=== PATIENT | male | born 1985 | race Caucasian/White ===

== ENCOUNTER 2017-04-23 14:28 | Emergency (ER) | payer OTHER ==
[~2017-04-23] VITALS: Ht 167.6 cm; Wt 81.6 kg
[2017-04-23 14:30] VITALS: BP 152/82
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
--- NOTE | 2017-04-23 15:10 | NUR ---
SHORT LEG SPLINT BEING PLACED
[2017-04-23] MEDS ORDERED: HYDROcodone/APAP 10/325 MG 1 TAB TAB PO ONE (15:20)
--- NOTE | 2017-04-23 16:13 | NUR ---
PT TOSSED URINE FROM HIS URINAL ONTO THE FLOOR--STATED HE IS TIRED AND WANTS TO GO TO [facility] ALREADY
[2017-04-23 16:14] VITALS: BP 152/82
--- NOTE | 2017-04-23 16:14 | NUR ---
PATIENT BIB [facility] [facility]PT. PATIENT EXAMINED BY . PATIENT MEDICALLY CLEARED AND RELEASED IN CUSTODY IN STABLE CONDITION. ORIGINAL PRE-BOOK FORM GIVEN TO OFFICER .
== END 2017-04-23 16:14 ==
LOC: MED 14:33
DX: Z02.89 Encounter for other administrative examinations (principal); S82.61XA Displaced fracture of lateral malleolus of right fibula, initial encounter for closed fracture; S00.83XA Contusion of other part of head, initial encounter; S20.419A Abrasion of unspecified back wall of thorax, initial encounter; I10 Essential (primary) hypertension; Z71.6 Tobacco abuse counseling; W22.8XXA Striking against or struck by other objects, initial encounter; Y93.89 Activity, other specified; Y92.89 Other specified places as the place of occurrence of the external cause; Y99.8 Other external cause status
CPT/HCPCS: 29515; 70150; 73610; 93005; 99284

== ENCOUNTER 2018-05-30 18:01 | Emergency (ER) | payer MEDICAID, OTHER ==
[~2018-05-30] VITALS: Ht 167.6 cm; Wt 82.6 kg
[2018-05-30 18:05] VITALS: BP 132/82
--- NOTE | 2018-05-30 18:11 | NUR ---
PT AMBULATED TO BED 01.
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
[2018-05-30] MEDS ORDERED: KETOROLAC 60 MG/2 ML VIAL IM ONE (18:35)
--- NOTE | 2018-05-30 18:55 | NUR ---
MOTHER REPORTED . PT HAS HX : SCHIZOPHRENIA, SEIZURE. MED: HYDROXAPINE, FLUPHENAZINE & LAMOTRIGINE
--- NOTE | 2018-05-30 19:05 | NUR ---
Pt report given to ROBYN FREEMAN. Transfer of care at this time.
[2018-05-30] MEDS ORDERED: GABAPENTIN 300 MG CAP PO ONE (19:40)
[2018-05-30] MEDS ORDERED: GABAPENTIN 300 MG CAP ONE (20:12)
--- NOTE | 2018-05-30 20:12 | NUR ---
ADMINISTERED NEURONTIN 300MG CAP PER DR PERALTA ORDERS. EXPLAINED COMMON SIDE EFFECTS.
[2018-05-30 20:15] VITALS: BP 122/63
--- NOTE | 2018-05-30 20:15 | NUR ---
Patient discharged with v/s stable. Written and verbal after care instructions given and explained. Patient alert, oriented and verbalized understanding of instructions. Ambulatory with steady gait. All questions addressed prior to discharge. ID band removed. Patient advised to follow up with PMD. Rx of Neurontin given. Patient educated on indication of medication including possible reaction and side effects. Opportunity to ask questions provided and answered.
== END 2018-05-30 20:15 | disposition home or self-care (01) ==
LOC: MED 18:01
DX: M79.601 Pain in right arm (principal); F20.9 Schizophrenia, unspecified
CPT/HCPCS: 96372; 99283; J1885

== ENCOUNTER 2018-06-24 20:56 | Emergency (ER) | payer MEDICAID ==
[~2018-06-24] VITALS: Ht 152.4 cm; Wt 81.6 kg
[2018-06-24 21:01] VITALS: BP 150/80
--- NOTE | 2018-06-24 21:06 | NUR ---
AAOX4 WITH EVEN AND STEADY GAIT; PATIENT STATES PAIN OF 8/10; VSS; PATIENT POSITIONED FOR COMFORT; HOB ELEVATED; BEDRAILS UP X2; BED DOWN. ER MD MADE AWARE OF PT STATUS. WILL CONTINUE TO MONITOR.
[2018-06-24 21:35] VITALS: BP 150/80
--- NOTE | 2018-06-24 21:35 | NUR ---
PATIENT BIB [place] [employer]. PATIENT EXAMINED BY DR. PERALTA. PATIENT MEDICALLY CLEARED AND RELEASED IN CUSTODY IN STABLE CONDITION. ORIGINAL PRE-BOOK FORM GIVEN TO OFFICER .
== END 2018-06-24 21:35 ==
LOC: MED 20:56
DX: M79.602 Pain in left arm (principal); Z02.89 Encounter for other administrative examinations
CPT/HCPCS: 90471; 90715; 99283

== ENCOUNTER 2019-09-27 15:36 | Emergency (ER) | payer OTHER ==
[~2019-09-27] VITALS: Ht 167.6 cm; Wt 113.4 kg
--- NOTE | 2019-09-27 15:39 | NUR ---
PT KRISTA BLS TO ER BED 07
[2019-09-27 15:49] VITALS: BP 143/104
--- NOTE | 2019-09-27 15:52 | NUR ---
PT MOTHER/CONSERVITOR/POWER OF DETECTIVE AND INTELLIGENCE ANALYST #[phone]
--- NOTE | 2019-09-27 15:58 | NUR ---
pt pulled out his IV sts " It hurt, i didn't like it." TIARA Arevalo notifted
--- NOTE | 2019-09-27 16:00 | NUR ---
BIB [facility] S/P PT MOTHER CALLED EMS ON PT BECAUSE SHE BELIEVED HE WAS HAVING A SEIZURE. PT STATES HE WAS NOT HAVING A SEIZURE, HE WAS CONSCIOUS AND IN "SHOCK", LIKELY HAVING A SCHIZOPHRENIC OUTBURST. PT DENIES SI/HI. RESP EVEN AND UNLABORED. AAOX4. ABLE TO AMBULATE TO RESTROOM. DENIES CP/SOB. PMH: SCHIZOPHRENIA, BIPOLAR
--- NOTE | 2019-09-27 16:21 | NUR ---
PATIENT ELOPED FROM FACILITY. DISCHARGE INSTRUCTIONS NOT GIVEN TO PATIENT. TIARA WOODARD NOTIFIED.
== END 2019-09-27 16:21 | disposition left against medical advice (07) ==
LOC: MED 15:36
DX: F20.0 Paranoid schizophrenia (principal); F17.210 Nicotine dependence, cigarettes, uncomplicated; F41.9 Anxiety disorder, unspecified; F32.9 Major depressive disorder, single episode, unspecified; Z02.89 Encounter for other administrative examinations; Z87.820 Personal history of traumatic brain injury
CPT/HCPCS: 99281; 99283; 99285

== ENCOUNTER 2019-12-27 00:14 | Emergency (ER) | payer OTHER ==
--- NOTE | 2019-12-27 00:27 | NUR ---
PT CALLED X 3 IN LOBBY AND TENT AREA - PER SECURITY PT LEFT
--- NOTE | 2019-12-27 00:28 | NUR ---
PATIENT LEFT WITHOUT BEING SEEN BY DR. ANTOINE. NO FURTHER CARE PROVIDED FOR PATIENT.
== END 2019-12-27 00:28 | disposition left against medical advice (07) ==
LOC: MED 00:14
DX: Z53.21 Procedure and treatment not carried out due to patient leaving prior to being seen by health care provider (principal)

== ENCOUNTER 2019-12-27 17:29 | Emergency (ER) | payer OTHER ==
[~2019-12-27] VITALS: Ht 167.6 cm; Wt 86.2 kg
[2019-12-27 17:33] VITALS: BP 166/100
--- NOTE | 2019-12-27 17:56 | NUR ---
34 Y/O M C/C BILATERAL EARACHE X 3 DAYS. PT PRESENTS AMBULATORY,A/OX4,EUPNIC,VSS. NO DRAINAGE NOTED. DENIES TRAUMA. ABLE TO HEAR WITH NO PROBLEM. NKA. HX SEIZURE. RX DEPAKOTE. NO NVD. SIDE RAIL X1.
[2019-12-27 18:08] VITALS: BP 152/90
--- NOTE | 2019-12-27 18:08 | NUR ---
Patient discharged with v/s stable. Written and verbal after care instructions given and explained. Patient alert, oriented and verbalized understanding of instructions. Ambulatory with steady gait. All questions addressed prior to discharge. ID band removed. Patient advised to follow up with PMD. Rx of CIPRODEX,AMOXICILLIN,VENTOLIN given. Patient educated on indication of medication including possible reaction and side effects. Opportunity to ask questions provided and answered.
== END 2019-12-27 18:08 | disposition home or self-care (01) ==
LOC: MED 17:29
DX: H60.503 Unspecified acute noninfective otitis externa, bilateral (principal); J40 Bronchitis, not specified as acute or chronic; R03.0 Elevated blood-pressure reading, without diagnosis of hypertension; F17.210 Nicotine dependence, cigarettes, uncomplicated; Z98.890 Other specified postprocedural states
CPT/HCPCS: 99283

== ENCOUNTER 2020-07-27 23:24 | Inpatient (IN) | payer OTHER ==
[~2020-07-27] VITALS: Ht 167.6 cm; Wt 109.8 kg
[2020-07-27 23:45] VITALS: BP 134/79
[2020-07-28] VITALS (16 sets, daily range): BP systolic 101–166; BP diastolic 52–100
[2020-07-28] MEDS ORDERED: THO25 PO (00:43)
[2020-07-28] MEDS ORDERED: DIVA500E2 PO (00:43)
[2020-07-28] MEDS ORDERED: HYDR-4004 PO (00:43)
[2020-07-28] MEDS ORDERED: OMEP-100 PO (00:43)
[2020-07-28] MEDS ORDERED: NACL 0.9% 1,000 ML IV ONE ×3 (00:50→04:40)
[2020-07-28 01:13] LABS: BASOPHILS # (AUTO) 0.1 K/uL (0.00-0.22); BASOPHILS % (AUTO) 0.7 % (0.0-2.0); HEMATOCRIT 51.2 % (36-52); HEMOGLOBIN 16.9 g/dL (12.0-18.0); LYMPHOCYTES # (AUTO) 0.4 K/uL (2.0-11.5); LYMPHOCYTES % (AUTO) 4.4 % (20.5-51.1); MEAN CORPUSCULAR HEMOGLOBIN 31 pg (27-31); MEAN CORPUSCULAR HGB CONC 33 g/dL (33-37); MEAN CORPUSCULAR VOLUME 95.1 fL (80-94); MONOCYTES # (AUTO) 1.1 K/uL (0.8-1.0); MONOCYTES % (AUTO) 10.8 % (1.7-9.3); NEUTROPHILS # (AUTO) 8.6 K/uL (1.8-7.7); NEUTROPHILS % (AUTO) 84.1 % (42.2-75.2); PLATELET COUNT (AUTO) 263 K/uL (140-450); RED BLOOD CELL COUNT(AUTO) 5.38 MIL/uL (4.20-6.10); RED CELL DISTRIBUTION WIDTH 12.4 % (11.6-13.7); WHITE BLOOD COUNT (AUTO) 10.2 K/uL (4.8-10.8)
[2020-07-28] MEDS ORDERED: HALOPERIDOL IM 5 MG/ML VIAL IM ONE (01:50)
[2020-07-28] MEDS ORDERED: LORazepam 2 MG/ML VIAL IM ONE (01:50)
[2020-07-28] MEDS ORDERED: diphenhydrAMINE 50 MG/ML VIAL IM ONE (01:50)
[2020-07-28 01:52] LABS: POTASSIUM 6.3 mmol/L (3.5-5.1); SODIUM SERUM 112 mmol/L (136-145)
[2020-07-28 01:53] LABS: ANION GAP 34.1 (8-16); CARBON DIOXIDE 4.2 mmol/L (21-32); CHLORIDE 80 mmol/L (98-107); GLUCOSE 1007 mg/dL (74-106)
[2020-07-28 01:54] LABS: ASPARTATE AMINOTRANSFERASE 59 U/L (15-37); CREATININE 2.1 mg/dL (0.6-1.3); GFR ARICAN-AMERICAN 47 mL/min (>90); UREA NITROGEN, BLOOD 17 mg/dL (7-18)
[2020-07-28] MEDS ORDERED: SODIUM BICARBONATE 8.4% PFS 50 MEQ/50 ML SYR IVP ONE (01:55)
[2020-07-28] MEDS ORDERED: INSULIN REGULAR, HUMAN 100 UNIT/ML VIAL IV ONE (01:55)
[2020-07-28] MEDS ORDERED: INSULIN REGULAR, HUMAN 100 UNIT in NACL 0.9% 100 ML IV ONE ×2 (01:55)
[2020-07-28] MEDS ORDERED: INSULIN REGULAR, HUMAN 100 UNIT/ML VIAL IVP ONE (01:55)
[2020-07-28] MEDS ORDERED: NACL 0.9% 4,000 ML IV ONE (01:55)
[2020-07-28] MEDS ORDERED: diphenhydrAMINE 50 MG/ML VIAL IVP ONE ×2 (02:10→02:40)
[2020-07-28] MEDS ORDERED: INSULIN REGULAR, HUMAN 100 UNIT in NACL 0.9% 100 ML IV SCH ×4 (02:40→06:30)
[2020-07-28 03:47] LABS: APPEARANCE,URINE CLEAR (CLEAR); BILIRUBIN,URINE NEGATIVE (NEGATIVE); BLOOD, URINE 2+ (NEGATIVE); COLOR,URINE YELLOW (YELLOW); LEUKOCYTE ESTERASE ,URINE NEGATIVE (NEGATIVE); NITRITE, URINE NEGATIVE (NEGATIVE); PH,URINE 5.5 (5.0-9.0); UGLUCOSE 3+ (NEGATIVE)
[2020-07-28 03:55] LABS: RBC,URINE 0-5 /HPF (0-5)
[2020-07-28] MEDS ORDERED: DEXTROSE 50% 50 ML SYR IVP PRN ×2 (04:05→08:25)
[2020-07-28] MEDS: BLOOD GLUCOSE MONITORING 1 DEV DEV FS SCH ×22 (04:25→23:25)
[2020-07-28 04:30] LABS: BARBITURATE, URINE NEGATIVE ng/ml (NEG <=200); BENZODIAZEPINE, URINE NEGATIVE ng/mL (NEG <=200); CANNABINOID, URINE NEGATIVE ng/mL (NEG <=50); COCAINE, URINE NEGATIVE ng/mL (NEG <=300); OPIATE, URINE NEGATIVE ng/mL (NEG <=2000); PHENCYCLIDINE SCREEN,URINE NEGATIVE ng/mL (NEG <=25)
[2020-07-28] MEDS ORDERED: SODIUM ZIRCONIUM CYCLOSILICATE 10 GM POWD.PACK PO ONE (04:40)
[2020-07-28] MEDS ORDERED: CALCIUM CHLORIDE 10% 1,000 MG in NACL 0.9% 100 ML IV ONE (05:45)
[2020-07-28] MEDS ORDERED: CALCIUM CHLORIDE 10% 100 MG/ML SYR IVP ONE (05:49)
[2020-07-28] MEDS ORDERED: cefTRIAXone 1,000 MG in LIDOCAINE MPF 1% 2.1 ML IM ONE (06:10)
[2020-07-28] MEDS ORDERED: cefTRIAXone 1,000 MG VIAL ONE (06:29)
[2020-07-28] MEDS ORDERED: DEXT 5% / NACL 0.45% 1,000 ML IV SCH (06:30)
[2020-07-28] MEDS ORDERED: LIDOCAINE MPF 1% 5 ML ONE (06:31)
[2020-07-28] MEDS ORDERED: SODIUM ZIRCONIUM CYCLOSILICATE 10 GM POWD.PACK ONE (06:51)
[2020-07-28 08:13] LABS: ANION GAP 25.4 (8-16); CARBON DIOXIDE 10.7 mmol/L (21-32); CREATININE 1.6 mg/dL (0.6-1.3); POTASSIUM 3.1 mmol/L (3.5-5.1)
[2020-07-28] MEDS ORDERED: ACETAMINOPHEN 325 MG TAB PO PRN (08:25)
[2020-07-28] MEDS ORDERED: LORazepam 2 MG/ML VIAL IM/IVP PRN (08:25)
[2020-07-28] MEDS ORDERED: DOCUSATE SODIUM 100 MG GELCAP PO PRN (08:25)
[2020-07-28] MEDS ORDERED: INSULIN LISPRO SLIDING SCALE 100 UNITS/ML VIAL SUBQ PRN (08:25)
[2020-07-28] MEDS ORDERED: HYDROcodone/APAP 5/325 MG 1 TAB TAB PO PRN (08:25)
[2020-07-28] MEDS: DEXT 5% / NACL 0.45% 1,000 ML IV SCH ×4 (08:25→20:53)
[2020-07-28] MEDS ORDERED: ONDANSETRON 4 MG/2 ML VIAL IM/IVP PRN (08:25)
[2020-07-28] MEDS ORDERED: ZOLPIDEM 5 MG TAB PO PRN (08:25)
[2020-07-28] MEDS ORDERED: MORPHINE SULFATE 2 MG/ML SYR IVP PRN (08:25)
[2020-07-28] MEDS ORDERED: MAG SULF 2000 MG/WATER PREMIX 50 ML IV PRN (08:35)
[2020-07-28 08:50] LABS: BASOPHILS # (AUTO) 0.1 K/uL (0.00-0.22); HEMATOCRIT 44.9 % (36-52); HEMOGLOBIN 15.6 g/dL (12.0-18.0); LYMPHOCYTES # (AUTO) 0.8 K/uL (2.0-11.5); LYMPHOCYTES % (AUTO) 8.3 % (20.5-51.1); MEAN CORPUSCULAR HEMOGLOBIN 31 pg (27-31); MEAN CORPUSCULAR HGB CONC 35 g/dL (33-37); MEAN CORPUSCULAR VOLUME 88.9 fL (80-94); MONOCYTES # (AUTO) 0.8 K/uL (0.8-1.0); MONOCYTES % (AUTO) 7.8 % (1.7-9.3); NEUTROPHILS # (AUTO) 8.3 K/uL (1.8-7.7); NEUTROPHILS % (AUTO) 82.9 % (42.2-75.2); PLATELET COUNT (AUTO) 179 K/uL (140-450); RED BLOOD CELL COUNT(AUTO) 5.05 MIL/uL (4.20-6.10); RED CELL DISTRIBUTION WIDTH 12.3 % (11.6-13.7)
[2020-07-28] MEDS ORDERED: OMEPRAZOLE 40 MG PO SCH (09:00)
[2020-07-28 09:07] LABS: CHOL/HDL RATIO 8.2 (1-4.5); THYROID STIMULATING HORMONE 0.53 uIU/mL (0.34-3.74)
[2020-07-28 09:28] LABS: PROTHROMBIN TIME 9.9 secs (10.8-13.4)
[2020-07-28] MEDS: LACTULOSE 20 GM/30 ML UDC PO SCH ×2 (09:31→20:31)
[2020-07-28] MEDS: hydroCHLOROthiazide 25 MG TAB PO SCH (09:32)
[2020-07-28] MEDS: DIVALPROEX 500 MG TABEC PO SCH ×2 (09:32→20:32)
[2020-07-28] MEDS: PANTOPRAZOLE 40 MG TABEC PO SCH (09:32)
[2020-07-28] MEDS: POTASSIUM CHLORIDE 10 MEQ TABER PO PRN ×2 (09:34→20:41)
[2020-07-28] MEDS ORDERED: CRUSHER, PILL MC ONE (09:38)
[2020-07-28] MEDS ORDERED: BLOOD GLUCOSE MONITORING 1 DEV DEV FS SCH (12:00)
[2020-07-28 13:03] LABS: MAGNESIUM 1.7 mg/dL (1.8-2.4); PHOSPHORUS 1.5 mg/dL (2.5-4.9)
[2020-07-28 13:50] LABS: ANION GAP 23.5 (8-16); CARBON DIOXIDE 12.7 mmol/L (21-32); CREATININE 1.4 mg/dL (0.6-1.3); POTASSIUM 3.2 mmol/L (3.5-5.1)
[2020-07-28] MEDS: INSULIN REGULAR, HUMAN 100 UNIT in NACL 0.9% 100 ML IV SCH ×2 (14:26)
[2020-07-28 16:48] LABS: ANION GAP 17.9 (8-16); CARBON DIOXIDE 15.8 mmol/L (21-32); CREATININE 1.4 mg/dL (0.6-1.3)
[2020-07-28 16:55] LABS: POTASSIUM 2.7 mmol/L (3.5-5.1)
[2020-07-28] MEDS ORDERED: POTASSIUM CHLORIDE 40 MEQ, LIDOCAINE MPF 1% 25 MG in NACL 0.9% 250 ML IV ONE (17:05)
[2020-07-28 17:14] LABS: MAGNESIUM 1.6 mg/dL (1.8-2.4)
[2020-07-28 17:22] LABS: PHOSPHORUS 0.8 mg/dL (2.5-4.9)
[2020-07-28] MEDS ORDERED: POTASSIUM PHOSPHATE 30 MM in NACL 0.9% 250 ML IV ONE (17:35)
[2020-07-28 20:28] LABS: ANION GAP 16.6 (8-16); CARBON DIOXIDE 18.9 mmol/L (21-32); CREATININE 1.3 mg/dL (0.6-1.3)
[2020-07-28] MEDS: chlorproMAZINE 25 MG TAB PO SCH (20:31)
[2020-07-28 20:33] LABS: MAGNESIUM 1.7 mg/dL (1.8-2.4); PHOSPHORUS 1.4 mg/dL (2.5-4.9)
[2020-07-28 20:35] LABS: POTASSIUM 2.5 mmol/L (3.5-5.1)
[2020-07-29] VITALS (18 sets, daily range): BP systolic 90–156; BP diastolic 27–91
[2020-07-29] MEDS: BLOOD GLUCOSE MONITORING 1 DEV DEV FS SCH ×24 (00:25→23:25)
[2020-07-29 00:33] LABS: MAGNESIUM 2.6 mg/dL (1.8-2.4)
[2020-07-29 00:37] LABS: ANION GAP 17.2 (8-16); CARBON DIOXIDE 17.3 mmol/L (21-32); CREATININE 1.2 mg/dL (0.6-1.3); POTASSIUM 2.5 mmol/L (3.5-5.1)
[2020-07-29] MEDS: POTASSIUM CHLORIDE 10 MEQ TABER PO PRN (00:45)
[2020-07-29] MEDS ORDERED: KCL 20 MEQ/WATER INJ PREMIX 200 ML IV ONE ×3 (00:48→08:50)
[2020-07-29 05:18] LABS: BASOPHILS % (AUTO) 0.4 % (0.0-2.0); EOSINOPHILS # (AUTO) 0.1 K/uL (0-0.4); EOSINOPHILS % (AUTO) 1.2 % (0.0-4.0); HEMATOCRIT 39.3 % (36-52); HEMOGLOBIN 13.9 g/dL (12.0-18.0); LYMPHOCYTES # (AUTO) 0.8 K/uL (2.0-11.5); LYMPHOCYTES % (AUTO) 11.6 % (20.5-51.1); MEAN CORPUSCULAR HEMOGLOBIN 31 pg (27-31); MEAN CORPUSCULAR HGB CONC 35 g/dL (33-37); MEAN CORPUSCULAR VOLUME 87.5 fL (80-94); MONOCYTES # (AUTO) 0.9 K/uL (0.8-1.0); MONOCYTES % (AUTO) 12.2 % (1.7-9.3); NEUTROPHILS # (AUTO) 5.4 K/uL (1.8-7.7); NEUTROPHILS % (AUTO) 74.6 % (42.2-75.2); PLATELET COUNT (AUTO) 171 K/uL (140-450); RED CELL DISTRIBUTION WIDTH 12.8 % (11.6-13.7); WHITE BLOOD COUNT (AUTO) 7.3 K/uL (4.8-10.8)
[2020-07-29 05:58] LABS: ANION GAP 18.2 (8-16); CARBON DIOXIDE 16.3 mmol/L (21-32); CREATININE 1.1 mg/dL (0.6-1.3)
[2020-07-29 06:02] LABS: MAGNESIUM 2.3 mg/dL (1.8-2.4)
[2020-07-29 06:33] LABS: POTASSIUM 2.5 mmol/L (3.5-5.1)
[2020-07-29 07:06] LABS: PHOSPHORUS 0.8 mg/dL (2.5-4.9)
[2020-07-29] MEDS ORDERED: KCL 20 MEQ/WATER INJ PREMIX 100 ML IV SCH ×2 (07:30→07:55)
[2020-07-29 08:36] LABS: ANION GAP 15.5 (8-16); CARBON DIOXIDE 17.8 mmol/L (21-32); CREATININE 1.1 mg/dL (0.6-1.3)
[2020-07-29 08:42] LABS: POTASSIUM 2.3 mmol/L (3.5-5.1)
[2020-07-29] MEDS: INSULIN REGULAR, HUMAN 100 UNIT in NACL 0.9% 100 ML IV SCH ×2 (09:04)
[2020-07-29] MEDS: DEXT 5% / NACL 0.45% 1,000 ML IV SCH ×4 (09:07→19:25)
[2020-07-29] MEDS: LACTULOSE 20 GM/30 ML UDC PO SCH ×2 (09:12→20:53)
[2020-07-29] MEDS: PANTOPRAZOLE 40 MG TABEC PO SCH (09:13)
[2020-07-29] MEDS: hydroCHLOROthiazide 25 MG TAB PO SCH (09:13)
[2020-07-29] MEDS: DIVALPROEX 500 MG TABEC PO SCH ×2 (09:13→20:53)
[2020-07-29 09:44] LABS: MAGNESIUM 2.2 mg/dL (1.8-2.4)
[2020-07-29 09:46] LABS: PHOSPHORUS 0.9 mg/dL (2.5-4.9)
[2020-07-29] MEDS ORDERED: POTASSIUM PHOSPHATE 30 MM in NACL 0.9% 250 ML IV SCH (11:00)
[2020-07-29 12:34] LABS: MAGNESIUM 2.7 mg/dL (1.8-2.4); PHOSPHORUS 1.5 mg/dL (2.5-4.9)
[2020-07-29 12:35] LABS: ANION GAP 13.3 (8-16); CARBON DIOXIDE 20.1 mmol/L (21-32); CREATININE 1.1 mg/dL (0.6-1.3)
[2020-07-29 12:41] LABS: POTASSIUM 2.4 mmol/L (3.5-5.1)
[2020-07-29 16:19] LABS: ANION GAP 14.3 (8-16); CARBON DIOXIDE 22.2 mmol/L (21-32)
[2020-07-29 16:23] LABS: POTASSIUM 2.5 mmol/L (3.5-5.1)
[2020-07-29 16:26] LABS: MAGNESIUM 2.4 mg/dL (1.8-2.4); PHOSPHORUS 1.7 mg/dL (2.5-4.9)
[2020-07-29] MEDS ORDERED: POTASSIUM PHOSPHATE 30 MM in NACL 0.9% 250 ML IV PRN (16:40)
[2020-07-29] MEDS ORDERED: POTASSIUM PHOSPHATE 30 MM in NACL 0.9% 500 ML IV SCH (17:30)
[2020-07-29] MEDS: chlorproMAZINE 25 MG TAB PO SCH (20:53)
[2020-07-29 22:09] LABS: ANION GAP 14.8 (8-16); CARBON DIOXIDE 21.4 mmol/L (21-32)
[2020-07-29 22:13] LABS: POTASSIUM 2.2 mmol/L (3.5-5.1)
[2020-07-29] MEDS ORDERED: INSULIN LANTUS 100 UNITS/ML 10 ML VIAL SUBQ SCH (23:10)
[2020-07-29] MEDS ORDERED: KCL 20 MEQ/WATER INJ PREMIX 200 ML IV SCH (23:20)
[2020-07-29] MEDS ORDERED: POTASSIUM CHLORIDE 10 MEQ TABER PO SCH (23:20)
[2020-07-30] VITALS (8 sets, daily range): BP systolic 129–158; BP diastolic 68–96
[2020-07-30 06:08] LABS: BASOPHILS % (AUTO) 0.5 % (0.0-2.0); HEMATOCRIT 38.8 % (36-52); HEMOGLOBIN 13.8 g/dL (12.0-18.0); LYMPHOCYTES # (AUTO) 0.9 K/uL (2.0-11.5); LYMPHOCYTES % (AUTO) 31.6 % (20.5-51.1); MEAN CORPUSCULAR HEMOGLOBIN 32 pg (27-31); MEAN CORPUSCULAR HGB CONC 36 g/dL (33-37); MEAN CORPUSCULAR VOLUME 88.7 fL (80-94); MONOCYTES # (AUTO) 0.5 K/uL (0.8-1.0); NEUTROPHILS # (AUTO) 1.5 K/uL (1.8-7.7); NEUTROPHILS % (AUTO) 50.9 % (42.2-75.2); PLATELET COUNT (AUTO) 133 K/uL (140-450); RED BLOOD CELL COUNT(AUTO) 4.38 MIL/uL (4.20-6.10); RED CELL DISTRIBUTION WIDTH 13.1 % (11.6-13.7); WHITE BLOOD COUNT (AUTO) 2.9 K/uL (4.8-10.8)
[2020-07-30 06:19] LABS: ANION GAP 19.7 (8-16); CARBON DIOXIDE 18.1 mmol/L (21-32); CREATININE 0.9 mg/dL (0.6-1.3); PHOSPHORUS 2.2 mg/dL (2.5-4.9)
[2020-07-30] MEDS: BLOOD GLUCOSE MONITORING 1 DEV DEV FS SCH ×2 (07:30→11:46)
[2020-07-30] MEDS: PANTOPRAZOLE 40 MG TABEC PO SCH (08:15)
[2020-07-30] MEDS: DIVALPROEX 500 MG TABEC PO SCH (08:15)
[2020-07-30] MEDS: LACTULOSE 20 GM/30 ML UDC PO SCH (08:16)
[2020-07-30] MEDS: hydroCHLOROthiazide 25 MG TAB PO SCH (08:16)
[2020-07-30] MEDS ORDERED: DEXTROSE 50% 50 ML SYR IVP PRN (08:40)
[2020-07-30] MEDS: INSULIN LISPRO SLIDING SCALE 100 UNITS/ML VIAL SUBQ PRN ×2 (08:42→11:47)
[2020-07-30 08:50] LABS: POTASSIUM 2.8 mmol/L (3.5-5.1)
[2020-07-30] MEDS ORDERED: POTASSIUM CHLORIDE 40 MEQ, LIDOCAINE MPF 1% 25 MG in NACL 0.9% 250 ML IV SCH (11:00)
== END 2020-07-30 15:40 | disposition left against medical advice (07) | DRG 637 ==
LOC: MED 23:24 → MIC 07-28 04:45
DX: E11.10 Type 2 diabetes mellitus with ketoacidosis without coma (principal); N17.0 Acute kidney failure with tubular necrosis; G93.41 Metabolic encephalopathy; N39.0 Urinary tract infection, site not specified; E72.20 Disorder of urea cycle metabolism, unspecified; E87.1 Hypo-osmolality and hyponatremia; K72.90 Hepatic failure, unspecified without coma; F20.9 Schizophrenia, unspecified; E87.5 Hyperkalemia; F31.9 Bipolar disorder, unspecified; G40.909 Epilepsy, unspecified, not intractable, without status epilepticus; E83.39 Other disorders of phosphorus metabolism; K21.9 Gastro-esophageal reflux disease without esophagitis; Z53.29 Procedure and treatment not carried out because of patient's decision for other reasons; Z20.822 Contact with and (suspected) exposure to COVID-19
CPT/HCPCS: 36415; 36600; 70450; 71045; 80048; 80053; 80305; 81001; 82009; 82140; 82150; 82803; 82948; 83036; 83690; 83735; 83880; 84100; 84134; 84443; 84484; 85025; 85610; 85730; 87081; 87086; 93005; G0482; J0696; J1200; J1644; J1815; J2001; J2405; J3475; J3480; J3490; J7030; J7042

== ENCOUNTER 2020-08-11 18:54 | Emergency (ER) | payer OTHER, SELFPAY ==
[~2020-08-11] VITALS: Ht 167.6 cm; Wt 81.6 kg
[~2020-08-11 18:54] MED LIST: DIVA500E2 PO; HUMSLIDE SUBQ; LANTUS SUBQ; OMEP40EC24 PO; THO25 PO
[2020-08-11 19:23] VITALS: BP 150/78
--- NOTE | 2020-08-11 19:25 | NUR ---
PT AMBULATORY, TO AWAIT IN LOBBY
--- NOTE | 2020-08-11 19:47 | NUR ---
PT AMBULATED TO BED 6
--- NOTE | 2020-08-11 19:50 | NUR ---
34-year-old male BIB mother with history of diabetes, complaints of left flank pain for the past 2 to 3 days radiating to his left epigastric region. Patient also found to be hyperglycemic. States he takes insulin. Endorses some nausea and nonbloody nonbilious emesis. Took no pain medication for relief. Ache is constant, no clear exacerbating alleviating factors. Endorses feeling some chills but denies fevers or dysuria or hematuria. Denies other chest pain or dyspnea. hx: DM, SCHIZO, BIPOLAR NKDA
--- NOTE | 2020-08-11 21:20 | NUR ---
XRAY AT THE BEDSIDE
--- NOTE | 2020-08-11 21:35 | NUR ---
LABS AND URINE SENT OT THE LABS
[2020-08-11 21:51] LABS: APPEARANCE,URINE CLEAR (CLEAR); BILIRUBIN,URINE NEGATIVE (NEGATIVE); BLOOD, URINE NEGATIVE (NEGATIVE); COLOR,URINE YELLOW (YELLOW); LEUKOCYTE ESTERASE ,URINE NEGATIVE (NEGATIVE); NITRITE, URINE NEGATIVE (NEGATIVE); PH,URINE 5.5 (5.0-9.0); UGLUCOSE 3+ (NEGATIVE)
[2020-08-11 21:52] LABS: BASOPHILS # (AUTO) 0.1 K/uL (0.00-0.22); BASOPHILS % (AUTO) 0.8 % (0.0-2.0); EOSINOPHILS % (AUTO) 0.6 % (0.0-4.0); HEMATOCRIT 33.9 % (36-52); HEMOGLOBIN 11.9 g/dL (12.0-18.0); LYMPHOCYTES # (AUTO) 1.1 K/uL (2.0-11.5); LYMPHOCYTES % (AUTO) 14.3 % (20.5-51.1); MEAN CORPUSCULAR HEMOGLOBIN 31 pg (27-31); MEAN CORPUSCULAR HGB CONC 35 g/dL (33-37); MEAN CORPUSCULAR VOLUME 89.4 fL (80-94); MONOCYTES # (AUTO) 1.4 K/uL (0.8-1.0); MONOCYTES % (AUTO) 17.9 % (1.7-9.3); NEUTROPHILS # (AUTO) 5.1 K/uL (1.8-7.7); NEUTROPHILS % (AUTO) 66.4 % (42.2-75.2); PLATELET COUNT (AUTO) 242 K/uL (140-450); RED BLOOD CELL COUNT(AUTO) 3.79 MIL/uL (4.20-6.10); RED CELL DISTRIBUTION WIDTH 12.5 % (11.6-13.7); WHITE BLOOD COUNT (AUTO) 7.7 K/uL (4.8-10.8)
[2020-08-11 22:08] LABS: ALBUMIN 2.9 g/dL (3.4-5.0); ANION GAP 19.2 (8-16); CREATININE 0.8 mg/dL (0.6-1.3); POTASSIUM 4.2 mmol/L (3.5-5.1); TOTAL BILIRUBIN 0.6 mg/dL (0.0-1.0)
--- NOTE | 2020-08-11 22:30 | NUR ---
Called the patient mother beth and spoke with her.Updated her with the pt condition and POC.
--- NOTE | 2020-08-11 22:39 | NUR ---
PT WAS TAKEN TO CT SCAN
[2020-08-11] MEDS ORDERED: NACL 0.9% 1,000 ML IV ONE (22:55)
[2020-08-11] MEDS ORDERED: INSULIN REGULAR, HUMAN 100 UNIT/ML VIAL SUBQ ONE (22:55)
--- NOTE | 2020-08-11 23:00 | NUR ---
PT IS BACK FROM CT SCAN
--- NOTE | 2020-08-11 23:17 | NUR ---
1 L NS BOLUS GIVEN AND HUMULIN R SQ 8 UNITS GIVEN ORDERED, TOLERATED WELL.
[2020-08-11] MEDS ORDERED: CYCLOBENZAPRINE 10 MG TAB PO ONE (23:30)
[2020-08-11] MEDS ORDERED: KETOROLAC 15 MG/ML VIAL IVP ONE (23:30)
--- NOTE | 2020-08-11 23:49 | NUR ---
TORADOL IVP AND FLEXERIL PO GIVEN ORDERED, TOLERATED WELL.
[2020-08-12] MEDS ORDERED: MAG355OR2 PO (00:06)
[2020-08-12] MEDS ORDERED: CYCL-654 PO (00:06)
[2020-08-12] MEDS ORDERED: ALBU0.0912 INH (00:23)
[2020-08-12 00:55] VITALS: BP 137/84
--- NOTE | 2020-08-12 00:55 | NUR ---
Patient discharged with v/s stable. Written and verbal after care instructions given and explained. Patient alert, oriented and verbalized understanding of instructions. Ambulatory with steady gait. All questions addressed prior to discharge. ID band removed. Patient advised to follow up with PMD. Rx CYCLOBENZAPRINE, MAALOX MAX STRENGTH, VENTOLIN INH of given. Patient educated on indication of medication including possible reaction and side effects. Opportunity to ask questions provided and answered.
--- NOTE | 2020-08-17 09:47 | NUR ---
late entry -- NS end time is 0010 08/12/20.
== END 2020-08-12 00:55 | disposition home or self-care (01) ==
LOC: MED 18:54
DX: E11.65 Type 2 diabetes mellitus with hyperglycemia (principal); K85.90 Acute pancreatitis without necrosis or infection, unspecified; M54.6 Pain in thoracic spine; R11.2 Nausea with vomiting, unspecified; Z79.4 Long term (current) use of insulin; Z79.899 Other long term (current) drug therapy
CPT/HCPCS: 36415; 71045; 74176; 80053; 81003; 82803; 83690; 85025; 96361; 96372; 96374; 99285; J1815; J1885; J7030

== ENCOUNTER 2021-05-13 13:39 | Emergency (ER) | payer OTHER ==
[~2021-05-13 13:39] MED LIST changes: +ALBU0.0912 INH; +CYCL-654 PO; +INSU100S45 SUBQ; +MAG355OR2 PO; +PRO1 PO
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
--- NOTE | 2021-05-13 14:05 | NUR ---
name called in lobby and outside, no answer at this time
[2021-05-13] MEDS ORDERED: diphenhydrAMINE 50 MG/ML VIAL IM ONE (14:10)
[2021-05-13] MEDS ORDERED: LORazepam 2 MG/ML VIAL IM ONE (14:10)
[2021-05-13] MEDS ORDERED: HALOPERIDOL IM 5 MG/ML VIAL IM ONE (14:10)
--- NOTE | 2021-05-13 14:10 | NUR ---
ATTEMPTED TO CALL PT AND MOTHER, NO ANSWER, LEFT MESSAGE
--- NOTE | 2021-05-13 14:11 | NUR ---
PATIENT LEFT WITHOUT BEING SEEN BY DR. KASPER. NO FURTHER CARE PROVIDED FOR PATIENT.
--- NOTE | 2021-05-13 14:12 | NUR ---
CALLED [facility], SPOKE WITH JACQUELINE #[phone] TO INFORM THEM THAT PT MADE HOMICIDAL REMARKS AND FLED THE HOSPITAL.
--- NOTE | 2021-05-13 15:11 | NUR ---
[facility] ARRIVED TO HOSPITAL. PROVIDED PT DETAILS AND EXPLANATION ABOUT WHAT HAPPENED.
== END 2021-05-13 14:11 | disposition left against medical advice (07) ==
LOC: MED 13:39
DX: Z53.21 Procedure and treatment not carried out due to patient leaving prior to being seen by health care provider (principal)

== ENCOUNTER 2021-06-15 12:53 | Emergency (ER) | payer OTHER ==
[~2021-06-15] VITALS: Ht 172.7 cm; Wt 65.8 kg
[2021-06-15 13:12] VITALS: BP 129/70
--- NOTE | 2021-06-15 13:20 | NUR ---
PT REQUESTING TO LEAVE AMA. BS READ HIGH DR ONEAL MADE AWARE. DR ONEAL SPOKE TO PT. PT DOES NOT WANT MEDICAL TX. PT WALKED OUT OF ER WITH MOTHER.
--- NOTE | 2021-06-15 13:21 | NUR ---
Patient does not wish to proceed with medical care recommended by DR ONEAL. Patient given information related to possible complications, up to and including , which could occur as a result of leaving hospital at this time. Patient verbalizes understanding of risks involved leaving against medical advice.
--- NOTE | 2021-06-15 13:21 | NUR ---
PT REQUESTING TO LEAVE. BS READ HIGH DR ONEAL MADE AWARE. DR ONEAL SPOKE TO PT. PT DOES NOT WANT MEDICAL TX. PT WALKED OUT OF ER WITH MOTHER.
--- NOTE | 2021-06-15 13:22 | NUR ---
PT LWBISHOP BY DR. HERNANDEZ
[2021-06-20] MEDS ORDERED: LANTUS SUBQ (11:01)
[2021-06-20] MEDS ORDERED: RISP2TAB5 PO (11:01)
== END 2021-06-15 13:22 | disposition left against medical advice (07) ==
LOC: MED 12:53
DX: R73.9 Hyperglycemia, unspecified (principal); R11.2 Nausea with vomiting, unspecified; M79.10 Myalgia, unspecified site; Z53.21 Procedure and treatment not carried out due to patient leaving prior to being seen by health care provider
CPT/HCPCS: 82948; 99281

== ENCOUNTER 2021-08-19 07:16 | Inpatient (IN) | payer OTHER ==
[~2021-08-19] VITALS: Ht 162.6 cm; Wt 54.4 kg
[2021-08-19] VITALS (10 sets, daily range): BP systolic 92–129; BP diastolic 71–97
[~2021-08-19 07:16] MED LIST changes: -INSU100S45 SUBQ; +RISP2TAB5 PO
--- NOTE | 2021-08-19 07:16 | NUR ---
KRISTA ALS TO ER BED 11
--- NOTE | 2021-08-19 07:20 | NUR ---
Dr. Evans is evaluating patient at bedside
[2021-08-19] MEDS ORDERED: NACL 0.9% 2,000 ML IV SCH (07:25)
--- NOTE | 2021-08-19 07:25 | NUR ---
35 y/o M BIBA from home c/o hyperglycemia EMS BS "HI." Per EMS, patient ALOC, weak, hypotensive on scene RR 29 HR 115. Patient with hx of DM noncompliant with medications >1 month. Patient presents weak, awake with confusion. AccuChek reading "HI." Pt placed onto engine monitor RR 29, HR 115, SpO2 99% on 2L by EMS. Bed locked in lowest position, side rails x 1. PMH: DM Meds: unknown NKDA
--- NOTE | 2021-08-19 07:28 | NUR ---
RT at bedside
--- NOTE | 2021-08-19 07:40 | NUR ---
Rectal 95.8
--- NOTE | 2021-08-19 07:50 | NUR ---
Condom catheter in place
--- NOTE | 2021-08-19 07:50 | NUR ---
Lab at bedside for blood draw
--- NOTE | 2021-08-19 07:51 | NUR ---
Bear hugger in place
--- NOTE | 2021-08-19 07:55 | NUR ---
RAD at bedside
--- NOTE | 2021-08-19 07:55 | NUR ---
Covid jarocho swab collected, handed to CPT Tyesha at ER bedside
[2021-08-19] MEDS ORDERED: NACL 0.9% 1,000 ML IV ONE ×2 (08:05→08:30)
[2021-08-19 08:14] LABS: HEMATOCRIT 50.3 % (36-52); HEMOGLOBIN 16.4 g/dL (12.0-18.0); MEAN CORPUSCULAR HEMOGLOBIN 32 pg (27-31); MEAN CORPUSCULAR HGB CONC 33 g/dL (33-37); PLATELET COUNT (AUTO) 372 K/uL (140-450); RED BLOOD CELL COUNT(AUTO) 5.08 MIL/uL (4.20-6.10); RED CELL DISTRIBUTION WIDTH 13.1 % (11.6-13.7); WHITE BLOOD COUNT (AUTO) 22.2 K/uL (4.8-10.8)
[2021-08-19 08:32] LABS: PROTHROMBIN TIME 10.3 secs (10.8-13.4)
[2021-08-19 08:42] LABS: ALBUMIN 3.2 g/dL (3.4-5.0); ANION GAP 35.8 (8-16); CREATININE 1.8 mg/dL (0.6-1.3); POTASSIUM 3.9 mmol/L (3.5-5.1); TOTAL BILIRUBIN 0.6 mg/dL (0.0-1.0)
[2021-08-19 08:44] LABS: CARBON DIOXIDE 5.1 mmol/L (21-32)
[2021-08-19] MEDS ORDERED: KCL 20 MEQ/WATER INJ PREMIX 100 ML IV ONE (09:05)
[2021-08-19] MEDS ORDERED: INSULIN REGULAR, HUMAN 100 UNIT in NACL 0.9% 100 ML IV ONE ×2 (09:05)
--- NOTE | 2021-08-19 09:05 | NUR ---
Report given to LYDIA Rhodes.
--- NOTE | 2021-08-19 09:15 | NUR ---
Patient will be admitted to care of Dr. Garcia. Admited to ICU. Will go to room ICU-5. Belongings list completed. Report to LYDIA Rhodes.
[2021-08-19 09:16] LABS: EOSINOPHILS % (MANUAL) 1 % (0-4); LYMPHOCYTES % (MANUAL) 6 % (20-46); MONOCYTES % (MANUAL) 10 % (5-12)
[2021-08-19 09:17] LABS: METAMYELOCYTES % 1 % (0-0); MYELOCYTES % 1 % (0-0)
[2021-08-19] MEDS ORDERED: MORPHINE SULFATE 2 MG/ML SYR IVP PRN (09:20)
[2021-08-19] MEDS ORDERED: HYDROcodone/APAP 5/325 MG 1 TAB TAB PO PRN (09:20)
[2021-08-19] MEDS ORDERED: PANTOPRAZOLE 40 MG INJ VIAL IVP SCH (09:20)
[2021-08-19] MEDS ORDERED: DEXT 5% / NACL 0.45% 1,000 ML IV SCH (09:20)
[2021-08-19] MEDS ORDERED: SODIUM PHOS / POTASSIUM PHOS 1 PKT PDR PO PRN (09:20)
[2021-08-19] MEDS ORDERED: ONDANSETRON 4 MG/2 ML VIAL IM/IVP PRN (09:20)
[2021-08-19] MEDS ORDERED: INSULIN REGULAR, HUMAN 100 UNIT in NACL 0.9% 100 ML IV SCH ×2 (09:20)
[2021-08-19] MEDS ORDERED: ALBUTEROL SULFATE/IPRATROPIU 3 ML SOL IH PRN (09:20)
[2021-08-19] MEDS ORDERED: MAG SULF 2000 MG/WATER PREMIX 50 ML IV PRN (09:20)
[2021-08-19] MEDS ORDERED: ACETAMINOPHEN 325 MG TAB PO PRN (09:20)
[2021-08-19] MEDS ORDERED: DOCUSATE SODIUM 100 MG GELCAP PO PRN (09:20)
[2021-08-19] MEDS ORDERED: DEXTROSE 50% 50 ML SYR IVP PRN (09:20)
[2021-08-19] MEDS ORDERED: INSULIN REGULAR, HUMAN 100 UNIT/ML VIAL SUBQ ONE (09:20)
[2021-08-19] MEDS ORDERED: POTASSIUM CHLORIDE 40 MEQ, LIDOCAINE MPF 1% 25 MG in NACL 0.9% 250 ML IV PRN (09:20)
--- NOTE | 2021-08-19 09:30 | NUR ---
RECEIVED REPORT FROM ER NURSE. ADMITTED 35 Y/O MALE WITH CC OF ALOC. DX OF DKA. HX OF DM, HTN, BIPOLAR DISORDER, SCHIZOPHRENIA, METH, SEIZURES, COVID. AOX1 RESPONSIVE TO NAME. MUMBLED SPEECH. NO S/S PAIN, RESPIRATIONS ARE DEEP AND RAPID. O2SAT 98% ON ROOM AIR. B/B INCONTINENT, WITH CONDOM CATH DRAINING CLEAR YELLOW URINE. IV SITE LH 20G, LFA 20G, RW 20G. WILL START INSULIN DRIP AND IVF ORDERED
[2021-08-19] MEDS: BLOOD GLUCOSE MONITORING 1 DEV DEV FS SCH ×15 (09:56→23:32)
[2021-08-19 10:02] LABS: MAGNESIUM 2.6 mg/dL (1.8-2.4); PHOSPHORUS 8.9 mg/dL (2.5-4.9)
[2021-08-19] MEDS: NACL 0.9% 1,000 ML IV SCH ×3 (10:22→19:20)
[2021-08-19 10:24] LABS: APPEARANCE,URINE CLEAR (CLEAR); BILIRUBIN,URINE 1+ (NEGATIVE); BLOOD, URINE TRACE-I (NEGATIVE); COLOR,URINE YELLOW (YELLOW); LEUKOCYTE ESTERASE ,URINE NEGATIVE (NEGATIVE); NITRITE, URINE NEGATIVE (NEGATIVE); PH,URINE 5.5 (5.0-9.0); UGLUCOSE 3+ (NEGATIVE)
[2021-08-19 10:33] LABS: RBC,URINE 0-5 /HPF (0-5)
[2021-08-19 10:34] LABS: TRICHOMONAS,URINE None Seen /HPF (None Seen); YEAST,URINE Rare /HPF (None Seen)
[2021-08-19 10:35] LABS: CALCIUM OXALATE CRYSTALS,UR None Seen /HPF (None Seen); COARSE GRANULAR CASTS,URINE None Seen /LPF (None Seen); FINE GRANULAR CASTS,URINE None Seen /LPF (None Seen); HYALINE CASTS, URINE None Seen /LPF (None Seen); OTHER CASTS, URINE None Seen /LPF (None Seen); OTHER CRYSTALS,URINE None Seen /HPF (None Seen); RED BLOOD CELL CASTS,URINE None Seen /LPF (None Seen); TRIPLE PHOSPHATE CRYSTAL,UR None Seen /HPF (None Seen); URIC ACID CRYSTALS,URINE None Seen /HPF (None Seen); URINE AMORPHOUS URATE None Seen /HPF (None Seen); WAXY CASTS,URINE None Seen /LPF (None Seen)
[2021-08-19 10:39] LABS: BARBITURATE, URINE NEGATIVE ng/ml (NEG <=200); BENZODIAZEPINE, URINE NEGATIVE ng/mL (NEG <=200); CANNABINOID, URINE NEGATIVE ng/mL (NEG <=50); COCAINE, URINE NEGATIVE ng/mL (NEG <=300); OPIATE, URINE NEGATIVE ng/mL (NEG <=2000); PHENCYCLIDINE SCREEN,URINE NEGATIVE ng/mL (NEG <=25)
--- NOTE | 2021-08-19 10:52 | NUR ---
PATIENT HAS BEEN SCREENED AND CATEGORIZED HIGH NUTRITION RISK. PATIENT WILL BE SEEN WITHIN 1-2 DAYS OF ADMISSION. RECEIVED REFERRAL FOR UNCONTROLLED DIABETES NANCY PAT[address]
[2021-08-19] MEDS ORDERED: BLOOD GLUCOSE MONITORING 1 DEV DEV FS SCH (11:30)
--- NOTE | 2021-08-19 12:00 | NUR ---
PT IN BED, NO APPARENT DISTRESS, FLACC 0
[2021-08-19] MEDS ORDERED: SODIUM BICARBONATE 8.4% PFS 50 MEQ/50 ML SYR IVP SCH (13:00)
[2021-08-19] MEDS: metroNIDAZOLE 500 MG/NS PREMIX 100 ML IV SCH ×2 (13:20→20:47)
--- NOTE | 2021-08-19 13:59 | NUR ---
08/19/21 RD INITIAL ASSESSMENT COMPLETED PLEASE REFER TO NUTRITION ASSESSMENT UNDER CARE ACTIVITY FOR ESTIMATED NUTRITIONAL NEEDS. 1. CONTINUE NPO MEDICALLY APPROPRIATE 2. WHEN/IF MEDICALLY STABLE TO START ORAL INTAKE, RECOMMEND CCHO 60GM DIET 3. RD TO FOLLOW-UP 2-3 DAYS, HIGH RISK NANCY PATEL RD
[2021-08-19 14:08] LABS: ANION GAP 30.2 (8-16); CREATININE 1.4 mg/dL (0.6-1.3); POTASSIUM 4.1 mmol/L (3.5-5.1)
[2021-08-19 14:12] LABS: CARBON DIOXIDE 5.9 mmol/L (21-32)
--- NOTE | 2021-08-19 16:30 | NUR ---
PT MORE AWAKE AND WITH CLEAR SPEECH, ST ON MONITOR, RESPIRATIONS ARE EVEN AND UNLABORED
[2021-08-19] MEDS ORDERED: RISPERIDONE PO SCH (17:00)
[2021-08-19] MEDS ORDERED: risperiDONE 1 MG TAB PO SCH (17:00)
[2021-08-19 18:01] LABS: CREATININE 1.2 mg/dL (0.6-1.3)
--- NOTE | 2021-08-19 18:53 | NUR ---
PT APPEARS COMFORTABLE IN BED, OFF RESTRAINTS, NOT ATTEMPTING TO TAKE OFF LINES
--- NOTE | 2021-08-19 19:30 | NUR ---
RECEIVED REPORT FROM DAY SHIFT NURSE, ASSUMED CARE. PT SLEEPING WITH EYES CLOSED IN NO APPARENT ACUTE DISTRESS, BREATHING AT RA, O2 SAT 96%, BREATHING EVEN AND UNLABORED, AOX2 WITH CLEAR SPEECH, DENIES PAIN, PERRLA 3MM. INFUSING INSULIN AT 0.1 UNITS/KG/HR VIA RIGHT HAND 20 G AND D5 1/2 NS AT 200 ML/HR VIA LEFT 20 G FOREARM. CONDOM CATHETER REMOVED BY PATIENT. SKIN INTACT. ALL SAFETY MEASURES IN PLACE, WILL CONTINUE TO CLOSELY MONITOR AND FOLLOW POC. Addendum: 08/20/21 at 0025 by Pema Mendez RN NS FLUID RUNNING AT 200 ML/HR. NOT D5 1/2 NS.
[2021-08-19] MEDS ORDERED: DIVALPROEX 500 MG TABEC PO ONE (19:56)
[2021-08-19 20:42] LABS: CARBON DIOXIDE 15.7 mmol/L (21-32); CREATININE 1.1 mg/dL (0.6-1.3)
[2021-08-19 20:44] LABS: POTASSIUM 2.7 mmol/L (3.5-5.1)
--- NOTE | 2021-08-19 20:50 | NUR ---
RECEIVED CRITICAL LAB VALUES FOR K 2.7, REPORTED TO DR. HAY, ORDERS RECEIVED AND CARRIED OUT.
[2021-08-19] MEDS ORDERED: POTASSIUM CHLORIDE 10 MEQ TABER PO SCH (20:55)
[2021-08-19] MEDS ORDERED: KCL 20 MEQ/WATER INJ PREMIX 200 ML IV SCH (20:55)
[2021-08-19] MEDS ORDERED: POTASSIUM CHLORIDE 10 MEQ TABER PO ONE (21:00)
[2021-08-19] MEDS ORDERED: DIVALPROEX 500 MG TABEC PO SCH (21:00)
[2021-08-19] MEDS ORDERED: KCL 20 MEQ/WATER INJ PREMIX 200 ML IV ONE (21:01)
--- NOTE | 2021-08-19 21:30 | NUR ---
PT PULLED OUT BOTH IV'S FROM LEFT ARM, BECAME VERBALLY AGGRESSIVE WHEN INSERTING NEW IV LINE. NEW PERIPHERAL IV PLACED ON LEFT FOREARM 20 G. PT IN NO APPARENT ACUTE DISTRESS. WILL CONTINUE TO CLOSELY MONITOR AND FOLLOW POC.
[2021-08-20] VITALS: BP 125/75
[2021-08-20] MEDS: BLOOD GLUCOSE MONITORING 1 DEV DEV FS SCH ×4 (00:21→03:29)
[2021-08-20 00:45] LABS: ANION GAP 19.8 (8-16); CARBON DIOXIDE 14.2 mmol/L (21-32)
[2021-08-20 01:00] VITALS: BP 125/75
[2021-08-20] MEDS: NACL 0.9% 1,000 ML IV SCH (01:16)
--- NOTE | 2021-08-20 01:20 | NUR ---
PT REQUESTING TO LEAVE AMA STATES HE WANTS TO GO HOME. BACKEND DEVELOPER ADVISED PT TO STAY IN HOSPITAL UNTIL ABLE TO BE DISCHARGED HOME SAFELY. PT IN NO ACUTE DISTRESS WENT BACK TO SLEEP.
[2021-08-20 02:00] VITALS: BP 114/70
--- NOTE | 2021-08-20 02:20 | NUR ---
PT REQUESTING TO GO HOME, CORDLESS PHONE GIVEN TO HIM TO CALL HIS MOTHER BUT DID NOT ANSWER. REDIALED PHONE NUMBER BUT NO ANSWER.
[2021-08-20 03:00] VITALS: BP 114/70
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
--- NOTE | 2021-08-20 03:40 | NUR ---
ANOTHER MESSAGE SENT TO TRIM ATTACHER DOCTOR REGARDING PT REFUSING CARE AT THIS MOMENT. PT CONTINUES TO REFUSE CARE AND DOES NOT WANT IV TO BE INSERTED AT THIS MOMENT. CALLED PT'S MOTHER TO NOTIFY HER OF CURRENT STATUS LEFT MESSAGE. PT IN NO APPARENT ACUTE DISTRESS.
--- NOTE | 2021-08-20 04:20 | NUR ---
patient refused vbg draw
--- NOTE | 2021-08-20 04:30 | NUR ---
DR. PEREZ MADE AWARE AND AGREED FOR PT TO SIGN AND LEAVE AMA. PT SIGNED AMA FORM AFTER BEING EDUCATED OF THE IMPORTANCE OF STAYING IN THE HOSPITAL AND THE IMPORTANCE OF INSULIN THERAPY GIVEN HIS ELEVATED BLOOD GLUCOSE LEVELS. PT MADE AWARE OF POSSIBLE CONSEQUENCES IF NOT TREATED PROPERLY. CALLED SISTER TAMIKO AND NOTIFIED HER PT SIGNED AMA. SISTER AGREED TO PICK HIM UP.
--- NOTE | 2021-08-20 04:44 | NUR ---
PT ACCOMPANIED BY PARAGLIDING INSTRUCTOR TO LOBBY. PT IN STABLE CONDITION BREATHING AT RA, AMBULATORY AND STEADY. PT HAD NO BELONGINGS WITH HIM.
== END 2021-08-20 04:44 | disposition left against medical advice (07) | DRG 871 ==
LOC: MED 07:16 → MIC 08:49
PROVIDERS: ADMIT Hospitalist; ATTEND Hospitalist
DX: A41.9 Sepsis, unspecified organism (principal); E11.10 Type 2 diabetes mellitus with ketoacidosis without coma; G93.41 Metabolic encephalopathy; N17.0 Acute kidney failure with tubular necrosis; J69.0 Pneumonitis due to inhalation of food and vomit; E44.1 Mild protein-calorie malnutrition; R65.20 Severe sepsis without septic shock; T38.3X6A Underdosing of insulin and oral hypoglycemic [antidiabetic] drugs, initial encounter; Z20.822 Contact with and (suspected) exposure to COVID-19; Z53.29 Procedure and treatment not carried out because of patient's decision for other reasons; F25.9 Schizoaffective disorder, unspecified; Z68.20 Body mass index [BMI] 20.0-20.9, adult; Z79.899 Other long term (current) drug therapy; Y92.89 Other specified places as the place of occurrence of the external cause
CPT/HCPCS: 36415; 36600; 71045; 80048; 80053; 80305; 81001; 82550; 82803; 82948; 83605; 83735; 83880; 84100; 84484; 85025; 85610; 85730; 87040; 87081; 87086; 93005; C9113; G0482; J0696; J1815; J3480; J3490; J7060; Q0092

== ENCOUNTER 2021-08-20 23:02 | Inpatient (IN) | payer OTHER ==
[~2021-08-20] VITALS: Ht 175.3 cm; Wt 28.6 kg
[2021-08-20 23:05] VITALS: BP 162/91
--- NOTE | 2021-08-20 23:05 | NUR ---
35 Y/O MALE BIBA, C/O ALOC X1HR. PATIENT PRESENTS TO ED WITH ALOC, KUMMAUL RESPIRATIONS. EMS STATES THEY WERE ACTIVATED BY FAMILY, PT PICKED UP FROM HOME. S/S STARTED 1HR PRIOR TO EMS ARRIVAL. PER EMS PT'S BGL WAS 368. DENIES N/V/D; SKIN IS PINK/WARM/DRY; AAOX1 TO PERSON ONLY; LUNGS CLEAR BL; HR EVEN AND REGULAR; PATIENT POSITIONED FOR COMFORT; HOB ELEVATED; BEDRAILS UP X2; BED DOWN. ER MD MADE AWARE OF PT STATUS. HX: DM, SCHIZOPHRENIA NKA
--- NOTE | 2021-08-20 23:05 | NUR ---
PT BIBA ALS ER BED 10
[2021-08-20] MEDS ORDERED: NACL 0.9% 1,000 ML IV SCH (23:10)
--- NOTE | 2021-08-20 23:17 | NUR ---
RT AT BEDSIDE OBTAINING ABG.
--- NOTE | 2021-08-20 23:17 | NUR ---
COVID/[facility]ANNA[facility] SWAB COLLECTED AND WALKED TO LAB
--- NOTE | 2021-08-20 23:17 | NUR ---
LABS AT BEDSIDE. .
--- NOTE | 2021-08-20 23:33 | NUR ---
RECEIVED AN ORDER FOR ABG @ 2306 PT PRESENTS LAYING IN BED, TACHYPNEIC, INCREASED WOB, USING ACCESSORY MUSCLES. ABG RESULTS ARE: PH: 6.93 PCO2: 18.1 PO2: 54.4 HCO3: 3.7 BE: -27.4 PT IS CURRENTLY ON RA SATING 100%. REPORTED FINDINGS TO ER DR. WALKER NO ORDERS/INTERVENTIONS MADE AT THIS TIME WILL CONTINUE TO MONITOR.
[2021-08-20 23:38] LABS: BASOPHILS # (AUTO) 0.2 K/uL (0.00-0.22); BASOPHILS % (AUTO) 1.7 % (0.0-2.0); EOSINOPHILS % (AUTO) 0.3 % (0.0-4.0); HEMOGLOBIN 17.6 g/dL (12.0-18.0); LYMPHOCYTES # (AUTO) 0.7 K/uL (2.0-11.5); LYMPHOCYTES % (AUTO) 6.4 % (20.5-51.1); MEAN CORPUSCULAR HEMOGLOBIN 33 pg (27-31); MEAN CORPUSCULAR HGB CONC 34 g/dL (33-37); MEAN CORPUSCULAR VOLUME 96.5 fL (80-94); MONOCYTES # (AUTO) 0.6 K/uL (0.8-1.0); MONOCYTES % (AUTO) 5.2 % (1.7-9.3); NEUTROPHILS # (AUTO) 9.5 K/uL (1.8-7.7); PLATELET COUNT (AUTO) 249 K/uL (140-450); RED BLOOD CELL COUNT(AUTO) 5.39 MIL/uL (4.20-6.10); RED CELL DISTRIBUTION WIDTH 13.2 % (11.6-13.7)
[2021-08-21 00:03] LABS: NEUTROPHILS % (AUTO) 86.4 % (42.2-75.2)
[2021-08-21 00:16] LABS: ALBUMIN 3.6 g/dL (3.4-5.0); ANION GAP 29.7 (8-16); TOTAL BILIRUBIN 0.7 mg/dL (0.0-1.0)
[2021-08-21 00:21] LABS: CARBON DIOXIDE 6.3 mmol/L (21-32)
[2021-08-21] MEDS ORDERED: INSULIN REGULAR, HUMAN 100 UNIT/ML VIAL IVP ONE (00:30)
[2021-08-21] MEDS ORDERED: INSULIN REGULAR, HUMAN 100 UNIT in NACL 0.9% 100 ML IV ONE ×2 (00:30)
--- NOTE | 2021-08-21 01:17 | NUR ---
PT'S LINENS WERE CHANGED, PT PLACED IN A GOWN AND DIAPER.
[2021-08-21] MEDS ORDERED: NACL 0.9% 1,000 ML IV ONE (02:10)
[2021-08-21] MEDS ORDERED: INSULIN REGULAR, HUMAN 100 UNIT in NACL 0.9% 100 ML IV SCH ×4 (02:20→04:00)
[2021-08-21] MEDS ORDERED: DEXTROSE 50% 50 ML SYR IVP PRN ×2 (02:20→04:00)
[2021-08-21] MEDS ORDERED: BLOOD GLUCOSE MONITORING 1 DEV DEV FS SCH (02:20)
--- NOTE | 2021-08-21 03:19 | NUR ---
Patient will be admitted to care of DR PEREZ. Admited to ICU. Will go to room 5. Belongings list completed. Report to LYDIA PAREDES.
--- NOTE | 2021-08-21 03:20 | NUR ---
ADMITTED THIS 35 YEAR OLD MALE PATIENT FROM ER PER GURNEY DUE TO ALOC AND HIGH BLOOD SUGAR LEVEL. ASSISTED IN BD 5, HOOKED TO DATA ARCHITECT MANAGER, SCOPE SHOWS ON SINUS TACHY HR 117/MIN. PATIENT IS SOMEWHAT COMBATIVE AND CONFUSE AND PULLS OUT HIS PULSE OXYMETER UPON ARRIVING TO ICU. ON INSULIN DRIP VIA G 18 IV CANNULA ON RFA, INTACT.
--- NOTE | 2021-08-21 03:30 | NUR ---
MRSA SCREENING, SPECIMENT SENT TO LAB.
[2021-08-21] MEDS: BLOOD GLUCOSE MONITORING 1 DEV DEV FS SCH ×8 (03:35→11:12)
--- NOTE | 2021-08-21 03:35 | NUR ---
ACCUCHECK DONE INITIALLY, IT'S 191; INSULIN DRIP REDUCED TO 0.05 UNITS/KG/HR ; THEN PATIENT STARTED ON IVF D5 1/2 NS AT 200 ML/HR PER PROTOCOL.
[2021-08-21 04:00] VITALS: BP 131/90
[2021-08-21] MEDS ORDERED: NACL 0.9% 1,000 ML IV SCH (04:00)
[2021-08-21] MEDS ORDERED: DEXT 5% / NACL 0.45% 1,000 ML IV SCH (04:00)
[2021-08-21 05:00] VITALS: BP 138/93
--- NOTE | 2021-08-21 05:00 | NUR ---
CRITICAL LAB RESULTS RELAYED TO DR. PEREZ, WITH NEW ORDERS, CARRIED OUT.
[2021-08-21 05:25] LABS: ANION GAP 24.4 (8-16); POTASSIUM 3.2 mmol/L (3.5-5.1)
[2021-08-21 05:32] LABS: MAGNESIUM 1.9 mg/dL (1.8-2.4); PHOSPHORUS 2.5 mg/dL (2.5-4.9)
[2021-08-21 05:38] LABS: CARBON DIOXIDE 9.8 mmol/L (21-32)
[2021-08-21 05:54] LABS: FREE T4 (FREE THYROXINE) 0.66 ng/dL (0.76-1.46); THYROID STIMULATING HORMONE 0.19 uIU/mL (0.34-3.74)
[2021-08-21 06:00] VITALS: BP 144/83
[2021-08-21] MEDS ORDERED: KCL 20 MEQ/WATER INJ PREMIX 200 ML IV SCH (06:10)
--- NOTE | 2021-08-21 07:30 | NUR ---
ENDORSED TO AM SHIFT RN JULY FOR CONTINUITY OF CARE.
--- NOTE | 2021-08-21 07:30 | NUR ---
RECEIVED REPORT FROM LYDIA PAREDES.
[2021-08-21 08:00] VITALS: BP 91/66
--- NOTE | 2021-08-21 08:00 | NUR ---
PATIENT AWAKENS TO VERBAL STIMULI. SPEECH CLEAR. ORIENTED TO NAME. REORIENTED TO PLACE AND TIME. MOVES ALL EXTREMITIES. HEART SOUNDS REGULAR. MONITOR SR. POSTERIOR LUNG SOUNDS CTA. ON RA WITH SAO2 100%. BOWEL SOUNDS ACTIVE. ABDOMEN SOFT. +DP PULSES BILATERALLY. NO EDEMA NOTED. RIGHT FA IV WITH D5.45NS AT 200MLHR. LEFT FA IV WITH INSULIN AT 0.05UNITS/KG/HR.
[2021-08-21] MEDS ORDERED: LORazepam 2 MG/ML VIAL IM/IVP PRN (08:25)
[2021-08-21] MEDS ORDERED: ONDANSETRON 4 MG/2 ML VIAL IM/IVP PRN (08:25)
[2021-08-21] MEDS ORDERED: DOCUSATE SODIUM 100 MG GELCAP PO PRN (08:25)
[2021-08-21] MEDS ORDERED: HYDROcodone/APAP 5/325 MG 1 TAB TAB PO PRN (08:25)
[2021-08-21] MEDS ORDERED: ACETAMINOPHEN 325 MG TAB PO PRN (08:25)
[2021-08-21] MEDS ORDERED: ZOLPIDEM 5 MG TAB PO PRN (08:25)
[2021-08-21] MEDS ORDERED: MAG SULF 2000 MG/WATER PREMIX 50 ML IV PRN (08:30)
[2021-08-21] MEDS ORDERED: POTASSIUM CHLORIDE 10 MEQ TABER PO PRN (08:30)
--- NOTE | 2021-08-21 08:32 | NUR ---
PATIENT HAS BEEN SCREENED AND CATEGORIZED HIGH NUTRITION RISK. PATIENT WILL BE SEEN WITHIN 1-2 DAYS OF ADMISSION. 08/21/21-08/22/[address]
--- NOTE | 2021-08-21 09:00 | NUR ---
PATIENT WITH INCREASING AGITATION. GIVEN PHONE TO CALL MOTHER. REQUESTED SHE COME PICK HIM UP. SHE REFUSED. BILATERAL WRIST RESTRAINTS IN PLACE. PATIENT ASKING FOR WATER. GIVEN ICE CHIPS.
[2021-08-21 09:01] LABS: POTASSIUM 3.2 mmol/L (3.5-5.1)
[2021-08-21 09:06] LABS: CARBON DIOXIDE 8.2 mmol/L (21-32); PHOSPHORUS 1.9 mg/dL (2.5-4.9)
[2021-08-21 10:00] VITALS: BP 133/83
--- NOTE | 2021-08-21 10:00 | NUR ---
PATIENT BELLIGERENT TO STAFF. YELLING AND INCREASINGLY COMBATIVE. ASKING TO CALL SISTER AND MOTHER. AWARE OF PLACE AND TIME.
--- NOTE | 2021-08-21 11:11 | NUR ---
PER DR PEREZ, PT CAN HAVE WATER IS TO REMAIN NPO UNTIL THE ANION GAP CLOSES
--- NOTE | 2021-08-21 11:45 | NUR ---
PATIENT COMBATIVE. ATTEMPTING TO HIT STAFF. PULLED OUT IV CATHETERS, ECG, BP CUFF. BEHAVIORAL RESTRAINTS PLACED TO PREVENT HITTING AND KICKING STAFF. MAIL ORDER CLERK CALLED.
[2021-08-21 12:00] VITALS: BP 135/87
--- NOTE | 2021-08-21 12:09 | NUR ---
08/21/2021 RD INITIAL ASSESSMENT COMPLETED. PLEASE REFER TO NUTRITION ASSESSMENT UNDER CARE ACTIVITY FOR ESTIMATED NUTRITIONAL NEEDS. [facility] OR PER MD. RD TO FOLLOW-UP IN 2-3 DAYS PATIENT IS HIGH RISK. NITESH LAURENT RD
--- NOTE | 2021-08-21 12:30 | NUR ---
SECURITY HERE. LICENSED CHEMICAL SPRAY TECHNICIAN HERE. DR. PEREZ CALLED AND MADE AWARE OF SITUATION AND REQUESTING TO GO AMA. PATIENT SIGNED AMA DOCUMENT. PATIENT'S MOTHER NOTIFIED. PATIENT LEFT AMA WITH SECURITY AND LICENSED CHEMICAL SPRAY TECHNICIAN ESCORT.
[2021-08-21 12:40] LABS: MAGNESIUM 1.9 mg/dL (1.8-2.4); PHOSPHORUS 1.3 mg/dL (2.5-4.9)
[2021-08-21 13:27] LABS: CHOL/HDL RATIO 5.2 (1-4.5)
[2021-08-21 13:50] LABS: ANION GAP 21.4 (8-16); CARBON DIOXIDE 10.9 mmol/L (21-32); POTASSIUM 3.3 mmol/L (3.5-5.1)
[2021-08-22 10:11] LABS: T4 (THYROXINE) 3.8 ug/dL (4.5 - 12.0)
== END 2021-08-21 12:15 | disposition left against medical advice (07) | DRG 637 ==
LOC: MED 23:02 → MIC 08-21 02:17
DX: E11.10 Type 2 diabetes mellitus with ketoacidosis without coma (principal); G93.41 Metabolic encephalopathy; J18.9 Pneumonia, unspecified organism; N17.9 Acute kidney failure, unspecified; I10 Essential (primary) hypertension; Z20.822 Contact with and (suspected) exposure to COVID-19; F25.9 Schizoaffective disorder, unspecified; E87.6 Hypokalemia; E03.9 Hypothyroidism, unspecified; Z79.4 Long term (current) use of insulin; Z79.899 Other long term (current) drug therapy; Z91.14 Patient's other noncompliance with medication regimen
CPT/HCPCS: 36415; 36600; 71045; 74018; 80048; 80053; 82150; 82803; 82947; 82948; 83036; 83605; 83690; 83735; 83880; 84100; 84134; 84436; 84439; 84443; 84479; 84484; 85025; 85610; 85730; 87040; 87081; 93005; 96361; 96374; 99291; J1644; J1815; J3480; J7030; Q0092